=== PATIENT | female | born 1970 | race African-American/Black ===

== ENCOUNTER 2017-05-20 14:39 | Emergency (ER) | payer BC ==
--- NOTE | ~2017-05-20 | CR93 ---
[facility] A Service of [facility] / [facility] RADIOLOGY TEXT RESULTS PATIENT: LORETO DOUGLAS LOCATION: SED : 70 UNIT #: [id number] AGE: [address]: ISIS LYONS SEX: F ORDER DR: [id number] [place] [id number] MR#: [id number] Acc #: [id number] NAME: LORETO DOUGLAS : 1970 SEX: F STUDY DATE/TIME: 05/20/2017 15:17 UNIT: SED ROOM: STUDY DESCRIPTION: CR Elbow Min 3 Views Lt Attending Physician: Isis Lyons Ordering Physician: Isis Lyons Primary Care Physician: [facility] MEDICAL IMAGING REPORT This report is preliminary unless electronic signature is present. EXAM 3 views left elbow. DATE: 05/20/2017 HISTORY Posterior elbow pain this weekend, hurt while using a vacuum. COMPARISON None. FINDINGS There is mild degenerative spurring projecting from the margins of the medial and lateral humeral condyles. No fracture. No dislocation. No joint effusion is identified. No retained radiopaque foreign bodies seen. IMPRESSION Mild marginal spurring of the medial and lateral humeral condyles. Otherwise, normal 3 views of the left elbow. Dictated by... Jaclyn Rao M.D. THIS IS AN ELECTRONICALLY VERIFIED REPORT Jaclyn Rao M.D. at 05/21/2017 8:56 AM AKIRA/juan TD: 05/21/2017 00:10 JOB #: [id number] [facility] A Service of [facility] / [facility] RADIOLOGY TEXT RESULTS PATIENT: LORETO DOUGALS LOCATION: SED : 70 UNIT #: [id number] AGE: [address]: ISIS LYONS SEX: F ORDER DR: MEDICAL IMAGING REPORT Page 1 of 1
[~2017-05-20 14:39] MED LIST: KEFLEX500 M2 PO; NORVASC10 MG; TYLENOL #3 PO
[2017-05-20] MEDS ORDERED: HCTZ (14:46)
== END 2017-05-20 16:23 | disposition home or self-care (01) ==
LOC: SED 14:39
DX: J06.9 Acute upper respiratory infection, unspecified (principal); M25.522 Pain in left elbow; I10 Essential (primary) hypertension; F17.210 Nicotine dependence, cigarettes, uncomplicated
CPT/HCPCS: 29260; 73080; 96372; 99283; J1885